=== PATIENT | female | born 1940 | race Caucasian/White ===

== ENCOUNTER 2024-05-24 12:16 | Day surgery (SDC) | payer MEDICARE, BC ==
[2024-05-24] MEDS ORDERED: PROPOFOL 20 ML ONE (13:24)
[2024-05-24 13:27] VITALS: BP 138/92; TEMP 97.6
[2024-05-24] MEDS ORDERED: Dextrose 50% Abboject 50 ML SYRINGE ONE (14:20)
== END 2024-05-24 14:59 | disposition home or self-care (01) ==
LOC: CSHSDC 12:16
PROVIDERS: ATTEND Internal Medicine Cardiovascular Disease
PROC: 5A2204Z Restoration of Cardiac Rhythm, Single (ICD-10-PCS; principal; 2024-05-24)
DX: I48.0 Paroxysmal atrial fibrillation (principal); I25.5 Ischemic cardiomyopathy; I48.4 Atypical atrial flutter; I13.0 Hypertensive heart and chronic kidney disease with heart failure and stage 1 through stage 4 chronic kidney disease, or unspecified chronic kidney disease; N18.30 Chronic kidney disease, stage 3 unspecified; I50.22 Chronic systolic (congestive) heart failure; I49.5 Sick sinus syndrome; Z95.1 Presence of aortocoronary bypass graft; Z95.0 Presence of cardiac pacemaker; J44.9 Chronic obstructive pulmonary disease, unspecified; I25.10 Atherosclerotic heart disease of native coronary artery without angina pectoris; Z88.5 Allergy status to narcotic agent; Z88.8 Allergy status to other drugs, medicaments and biological substances
CPT/HCPCS: 82962; 92960; 93005; J2704; J7999; 36416; 93010